=== PATIENT | female | born 2000 | race Two or more races ===

== ENCOUNTER → 2019-02-27 | Outpatient (CLI) | payer OTHER ==
--- NOTE | 2019-02-27 17:29 | RADIOLOGY REPORT (SQ) ---
EXAM DESCRIPTION: U/S NON-OB PELVIS W/O DOP; U/S NON-OB PELVIS TV W/O DOP COMPLETED DATE/TIME: 02/27/2019 5:08 pm REASON FOR STUDY: N91.1 SECONDARY AMENORRHEA N91.1 SECONDARY AMENORRHEALMP 8 months ago. COMPARISON: None TECHNIQUE: Dynamic and static grayscale images acquired of the pelvis via transabdominal approach an d recorded on PACS. Additional selected color Doppler and spectral images recorded. LIMITATIONS: None. FINDINGS: UTERUS: Contour normal. No mass. ENDOMETRIAL STRIPE: No focal or generalized thickening. No masses. CERVIX: 2.4 cm. No nabothian cysts. RIGHT OVARY AND DOPPLER: Normal size. No worrisome masses. Normal arterial vascular flow without evid ence for torsion. LEFT OVARY AND DOPPLER: Normal size. No worrisome masses. Normal arterial vascular flow without evide nce for torsion. FREE FLUID: None noted. OTHER: No other significant finding. MEASUREMENTS: UTERUS: 6.7 x 3.9 x 3.1 cm. ENDOMETRIAL STRIPE: 7 mm. RIGHT OVARY: 3.9 x 2 x 1.6 cm. LEFT OVARY: 2.8 x 2.7 x 1.8 cm. IMPRESSION: NORMAL PELVIC ULTRASOUND BY TRANSVAGINAL AND TRANSABDOMINAL TECHNIQUE. TECHNICAL DOCUMENTATION: JOB ID: [id number] [employer]- All Rights Reserved Rev-06/24 Reading location - IP/workstation name: [email or web address]
--- NOTE | 2019-02-27 17:29 | RADIOLOGY REPORT (SQ) ---
EXAM DESCRIPTION: U/S NON-OB PELVIS W/O DOP; U/S NON-OB PELVIS TV W/O DOP COMPLETED DATE/TIME: 02/27/2019 5:08 pm REASON FOR STUDY: N91.1 SECONDARY AMENORRHEA N91.1 SECONDARY AMENORRHEALMP 8 months ago. COMPARISON: None TECHNIQUE: Dynamic and static grayscale images acquired of the pelvis via transabdominal approach an d recorded on PACS. Additional selected color Doppler and spectral images recorded. LIMITATIONS: None. FINDINGS: UTERUS: Contour normal. No mass. ENDOMETRIAL STRIPE: No focal or generalized thickening. No masses. CERVIX: 2.4 cm. No nabothian cysts. RIGHT OVARY AND DOPPLER: Normal size. No worrisome masses. Normal arterial vascular flow without evid ence for torsion. LEFT OVARY AND DOPPLER: Normal size. No worrisome masses. Normal arterial vascular flow without evide nce for torsion. FREE FLUID: None noted. OTHER: No other significant finding. MEASUREMENTS: UTERUS: 6.7 x 3.9 x 3.1 cm. ENDOMETRIAL STRIPE: 7 mm. RIGHT OVARY: 3.9 x 2 x 1.6 cm. LEFT OVARY: 2.8 x 2.7 x 1.8 cm. IMPRESSION: NORMAL PELVIC ULTRASOUND BY TRANSVAGINAL AND TRANSABDOMINAL TECHNIQUE. TECHNICAL DOCUMENTATION: JOB ID: [id number] [employer]- All Rights Reserved Rev-06/24 Reading location - IP/workstation name: [email or web address]
== END ==
LOC: RAD 16:18
PROVIDERS: ATTEND Midwife
DX: N91.1 Secondary amenorrhea (principal)
CPT/HCPCS: 76830; 76856